=== PATIENT | female | born 1980 | race Caucasian/White ===

== ENCOUNTER 2021-11-20 11:59 | Outpatient (CLI) | payer SELFPAY ==
[2021-11-20 15:18] LABS: Albumin* 4.5 g/dL (3.3-5.0); Chloride* 104 mmol/L (96-114); Potassium* 4.6 mmol/L (3.6-5.1); Sodium* 136 mmol/L (135-149)
[2021-11-20 15:20] LABS: Cholesterol* 214 mg/dL (90-199)
[2021-11-20 15:21] LABS: Alanine Aminotransferase* 10 U/L (4-35); Alkaline Phosphatase* 57 U/L (40-150); Aspartate Amino Transferase* 17 U/L (12-35); Bilirubin Total* 0.6 mg/dL (0.1-1.5); Blood Urea Nitrogen* 9 mg/dL (5-24); Calcium* 8.8 mg/dL (8.4-10.6); Carbon Dioxide* 24 mmol/L (20-32); Creatinine* 0.7 mg/dL (0.5-1.5); Estimated Glomerular Filt Rate 112 ml/min; Glucose* 95 mg/dL (60-115); HDL Cholesterol* 75 mg/dL (>=50); LDL Cholesterol Calculated 120 mg/dL (<100); Total Protein* 6.8 g/dL (6.0-8.3); Triglycerides* 97 mg/dL (40-149)
== END 2021-11-20 12:00 | disposition home or self-care (01) ==
PROVIDERS: PCP Physician Assistant Medical; Visit Provider Physician Assistant Medical
DX: Z00.00 Encounter for general adult medical examination without abnormal findings (principal); D72.819 Decreased white blood cell count, unspecified; F41.9 Anxiety disorder, unspecified
CPT/HCPCS: 80053; 80061

== ENCOUNTER 2022-01-30 14:19 | Outpatient (CLI) | payer SELFPAY ==
--- NOTE | 2022-01-30 14:40 | CRLHL7_ITS ---
For Patients: As a result of the Cures Act, medical imaging exams and procedure reports are released immediately into your electronic medical record. You may view this report before your referring provider. If you have questions, please contact your health care provider. BILATERAL SCREENING MAMMOGRAM WITH COMPUTER-AIDED DETECTION AND TOMOSYNTHESIS TECHNIQUE: CC, MLO and Implant displaced views were obtained. These mammographic images have been obtained using full-field digital technique. These mammographic images were interpreted with the benefit of computer-aided detection. Breast Tomosynthesis was used in this interpretation. COMPARISON FILM: Baseline. FINDINGS: The breasts are extremely dense, which lowers the sensitivity of mammography IMPRESSION: There is no radiographic evidence for malignancy. ASSESSMENT: BI-RADS Category 2: Benign RECOMMENDATION: Routine screening mammogram in 1 year. A lay language report of this examination will be provided to the patient. Celso De Leon M.D. Diagnostic Radiologist [email or web address] COMFORT/[email or web address] be/Dictated by: Celso De Leon MD @ 01/31/2022 10:05:00 AM BRAD/Dictated by: Celso De Leon MD @ 01/31/2022 10:05:00 AM (Electronically Signed)
== END 2022-01-30 14:20 | disposition home or self-care (01) ==
PROVIDERS: PCP Physician Assistant Medical; Visit Provider Physician Assistant Medical
DX: Z12.31 Encounter for screening mammogram for malignant neoplasm of breast (principal); R92.2 Inconclusive mammogram
CPT/HCPCS: 77063; 77067

== ENCOUNTER 2023-04-03 09:19 | Outpatient (CLI) | payer OTHER, SELFPAY ==
--- OUTSIDE RECORDS SUMMARY | 2023-04-03 09:25 | XMS_ITS | Clinical Summary ---
Author Name Unknown Organization [facility] Address [place], [place] [address] Care Team Providers Care Er Physician Name Role Phone Pcp, No Primary Care Provider Unavailabl e Allergies Active Allergy Reactions Criticality Noted Date Comments [place] Oil GI Upset 02/11/2008 Amoxicillin Nausea And Vomiting 11/05/2005 Medications Medication Sig Dispensed Refills Start Date End Date Status ACETAMINOPHEN 325 MG TAB Take 1-2 325mg tablets by mouth every 4 hours for mild pain as needed. 0 0 02/13/2008 Active drospirenone-ethinyl estradiol (GIANVI, 28,) 3-0.02 mg tabletIndications:Con traception management Take 1 tablet by mouth once daily. 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 Display name retained. Nausea with vomiting 11/05/2005 Overview: Taking Zofran 8mg ODT q8hr prn.Sunny Yuan .................... 11/05/2005 3:09 PM Resolved Problems Problem Noted Date Diagnosed Date Resolved Date Supervision of other normal 11/05/2005 06/12/2010 Immunizations Name Administration Dates Next Due Tdap 10/18/2011 Family History Medical History Relation Name Comments Cancer-colon Father Johnny Diabetes Father Johnny Heart Disease Father Johnny obesity Hypertension Father Johnny Other Mother Lizy mental illness Relation Name Status Comments Father Johnny Alive Mother Lizy Alive Sister Mikala Alive Social History Tobacco Use Types Packs/Day Years Used Date Smoking Tobacco: Never Alcohol Use Standard Drinks/Week Comments Yes 3.3 (1 standard drink = 0.6 oz p ure alcohol) Sex and Gender Information Value Date Recorded Sex Assigned at Not on file Gender Identity Not on file Sexual Orientation Not on file Obstetrics History Para Term AB IAB SAB Ectopic Multiple Livin g Live Births 4 3 2 0 1 0 1 0 0 1 1 Date Outcome GA Total Labor Labor/2nd/3rd Weight Sex Delivery Anes PTL Alva A1 A5 Name Cl in Term SAB Para 02/18 Term 38w 0d 9h 00m/ 3.23 kg (7 lb 2 oz) M Vag Lynne ng Lucus Last Filed Vital Signs Vital Sign Reading Time Taken Comments Blood Pressure 110/68 05/23/2014 2:08 PM CDT Pulse 72 05/23/2014 2:08 PM CDT Temperature 36.8 ??C (98.3 ??F) 05/23/2014 2:08 PM CD T Respiratory Rate 16 02/13/2008 9:00 AM [facility]HO[facility] B[facility]ER Oxygen Saturation 99% 05/13/2006 2:51 PM CDT Inhaled Oxygen Concentration - - Weight 66.4 kg (146 lb 4.8 oz) 05/23/2014 2:08 P M CDT Height 172.7 cm (5' 8) 05/23/2014 2:08 PM CDT Body Mass Index 22.24 05/23/2014 2:08 PM CDT Plan of Treatment Health Maintenance Due Date Last Done Comments COVID-19 vaccine series (#1) 1981 Depression screening for age 12+ 1993 BMI (ht and wt on same day) for age 18+ 1999 Hepatitis C screening for age 18-79 1999 Tetanus booster 10/17/2021 10/18/2011 Influenza for age 9-49 10/25/2022 Pap test for age 21-65 11/22/2024 2, 11/22/2021, 05/27/2016, Additional history exists HIV for age 15-65 Completed 06/26/2007 Tdap Completed 10/18/2011 Pneumococcal series for age 6-64 Aged Out No longer eligible based on patient's age to complete this topic Advance Directives Latest Code Status on File Code Status Date Activated Date Inactivated Comments Full Code 02/11/2008 3:42 AM 02/13/2008 5:36 PM Code Status History Code Status Date Activated Date Inactivated Comments Full Code 05/13/2006 4:14 PM 05/15/2006 12:46 PM Full Code 05/13/2006 9:47 AM 05/13/2006 4:14 PM Care Teams Er Physician Relationship Specialty Start Date End Date Pcp, No . PCP - General 05/12/14
--- NOTE | 2023-04-03 09:45 | CRLHL7_ITS ---
For Patients: As a result of the Century Cures Act, medical imaging exams and procedure reports are released immediately into your electronic medical record. You may view this report before your referring provider. If you have questions, please contact your health care provider. DIGITAL DIAGNOSTIC BILATERAL MAMMOGRAM USING TOMOSYNTHESIS AND COMPUTER-AIDED DETECTION LEFT BREAST ULTRASOUND CLINICAL HISTORY: LEFT breast lump. COMPARISON: 01/30/2022. TECHNIQUE: Digital BILATERAL mammogram in four projections. Tomosynthesis and CAD utilized. Real-time ultrasound imaging of LEFT breast with imaging documentation. BREAST COMPOSITION: The breasts are heterogeneously dense, which may obscure small masses. FINDINGS: Mammogram images demonstrate benign punctate calcifications bilaterally. Intact bilateral implants. No adenopathy. Asymmetric density in the upper outer quadrant LEFT breast corresponding to the area of palpable concern. Targeted LEFT breast ultrasound performed in the area of concern. In the upper outer quadrant at 2 o`clock 5 cm from the nipple, there is a simple circumscribed anechoic cyst with increased through-transmission measuring 1.9 x 1.4 x 1.9 cm. IMPRESSION: Benign simple cyst LEFT breast 2 o`clock 5 cm from the nipple measuring 1.9 cm. No evidence of malignancy. RECOMMENDATIONS: Annual BILATERAL screening mammography. Results and recommendations were discussed with the patient at the time of the exam. BI-RADS Category 2: Benign A lay language report of this examination will be provided to the patient. Dictated by Celso D eLeon MD @ 04/03/2023 11:56:22 AM /Dictated by: Celso De Leon MD @ 04/03/2023 11:56:00 AM (Electronically Signed)
--- NOTE | 2023-04-03 10:15 | CRLHL7_ITS ---
For Patients: As a result of the Cures Act, medical imaging exams and procedure reports are released immediately into your electronic medical record. You may view this report before your referring provider. If you have questions, please contact your health care provider. PLEASE SEE DIGITAL DIAGNOSTIC BILATERAL MAMMOGRAM PERFORMED SAME DAY CRL:[email or web address] metz/Dictated by: Celso De Leon MD @ 04/03/2023 11:56:00 AM (Electronically Signed)
== END 2023-04-03 09:20 | disposition home or self-care (01) ==
LOC: MAMMO 09:20
PROVIDERS: PCP Physician Assistant Medical; Visit Provider Physician Assistant Medical
DX: N63.20 Unspecified lump in the left breast, unspecified quadrant (principal); N60.02 Solitary cyst of left breast; R92.2 Inconclusive mammogram
CPT/HCPCS: 76642; 77066; G0279

== ENCOUNTER 2024-06-21 14:42 | Outpatient (CLI) | payer OTHER, SELFPAY ==
--- NOTE | 2024-06-21 15:00 | CRLHL7_ITS ---
For Patients: As a result of the Century Cures Act, medical imaging exams and procedure reports are released immediately into your electronic medical record. You may view this report before your referring provider. If you have questions, please contact your health care provider. INDICATION: BILATERAL SCREENING MAMMOGRAM, ASYMPTOMATYIC 44 Y/O FEMALE COMPARISON: , 04/03/23, 01/30/22 TECHNIQUE: CC and MLO views were obtained. These mammographic images have been obtained using full-field digital technique. These mammographic images were interpreted with the benefit of computer aided detection and tomosynthesis. BREAST COMPOSITION: The breasts are extremely dense, which lowers the sensitivity of mammography. FINDINGS: No suspicious findings. ASSESSMENT: BI-RADS 2 Benign RECOMMENDATION: Annual screening mammogram. A lay language report of this examination will be provided to the patient. Dictated by: Celso De Leon MD @ 06/29/2024 12:22:51 (Electronically Signed)
== END 2024-06-21 14:43 | disposition home or self-care (01) ==
LOC: MAMMO 14:42
PROVIDERS: PCP Physician Assistant Medical; Visit Provider Physician Assistant Medical
DX: Z12.31 Encounter for screening mammogram for malignant neoplasm of breast (principal); R92.343 Mammographic extreme density, bilateral breasts
CPT/HCPCS: 77063; 77067